=== PATIENT | female | born 2005 | race Hispanic/Latino ===

== ENCOUNTER → 2025-02-13 15:31 | Outpatient (CLI) | payer OTHER, SELFPAY ==
[2025-02-13 17:36] LABS: Add Manual Diff / Slide Review NO; Hematocrit 34.5 % (36-46); Hemoglobin 11.8 g/dL (12.0-16.0); Lymphocytes Absolute Auto 1800 /uL (1100-4500); Mean Corpuscular HGB Conc 34.3 % (30-36); Mean Corpuscular Hemoglobin 33.7 PG (26-34); Mean Corpuscular Volume 98.4 fL (80-100); Platelet Count 126 X10^3/uL (150-400)
[2025-02-13 17:48] LABS: Appearance Urine UA CLEAR; Bilirubin Urine UA NEGATIVE (NEGATIVE); Color Urine UA YELLOW; Glucose Urine UA NEGATIVE (Negative); Ketones Urine UA NEGATIVE (NEGATIVE); Leukocyte Esterase Urine UA NEGATIVE (NEGATIVE); Nitrite Urine UA NEGATIVE (Negative); Occult Blood Urine UA NEGATIVE (Negative); Protein Urine UA NEGATIVE (Negative); Specific Gravity Urine UA 1.010 (1.000-1.035); Urobilinogen Urine UA 0.2 E.U./dL (0.2)
[2025-02-13 17:53] LABS: pH Urine UA 7.0 (4.5-8.0)
[2025-02-14 15:35] LABS: Hepatitis B Surface Antigen NEGATIVE s/c (NEGATIVE)
[2025-02-14 15:51] LABS: HIV 1 & 2 Ab/Ag 4th Gen Combo NEGATIVE (NEGATIVE); Hep C Virus Ab w/Reflex Quant NEGATIVE s/c (NEGATIVE)
== END ==
PROVIDERS: PCP Nurse Practitioner Family; Referring Provider Family Medicine; Visit Provider Family Medicine
DX: Z34.00 Encounter for supervision of normal first pregnancy, unspecified trimester (principal)
CPT/HCPCS: 36415; 80055; 81003; 86787; 86803; 86850; 86900; 86901; 87086; 87389

== ENCOUNTER → 2025-03-07 12:45 | Outpatient (CLI) | payer OTHER, SELFPAY ==
--- NOTE | 2025-03-07 12:46 | DI.US.S_ITS ---
PROCEDURE: US OB >= 14 WEEKS FETUS INDICATIONS: antaomy OUTSIDE/PRIOR DATING DATA: Last menstrual period (LMP): October 20, 2024. LMP-based estimated date of delivery (VANNESSA): July 27, 2025. TECHNIQUE: Real-time scanning was performed of the fetus, with image documentation and biometric measurements. Endovaginal scanning: Not performed COMPARISON: None. FINDINGS: General: A single living intrauterine gestation is present. Presentation: Vertex. Placenta: Placental position is posterior , without previa. Amniotic fluid index: 11.0 cm, normal range is 5-24 cm. Single deepest vertical pocket is 5.2 cm. heart rate: 163 beats per minute. Maternal cervical canal: 1.7 in the cm long. Normal lower limit is 2.5 cm. biometrics: Biparietal diameter: 4.7 cm, 20 weeks and 0 days Head circumference: 17.2 cm, 19 weeks and 6 days Abdominal circumference: 14.5 cm, 19 weeks and 6 days Femur length: 3.1 cm, 19 weeks and 5 days Clinically estimated gestational age: 19 weeks and 5 days Composite gestational age from present scan: 19 weeks and 6 days Estimated weight and percentile: 313 g, 50th percentile Anatomic survey: Neuro: Ventricles are non-dilated at less than 10 mm. Cisterna magna is normal at 3-11 mm. Cerebellum is normal in size and morphology. Nuchal skin fold: Normal at less than 6 mm between 14-21 weeks gestational age. Face: Nose and lips, facial profile are normal. Spine: No evidence for spina bifida. Heart: 4-chambered heart is present, with normal ventricular outflow tracts. Diaphragm: Diaphragm is intact. Stomach: Left-sided stomach is present. Kidneys: No hydronephrosis. Normal is less than 5 mm in 2nd trimester, less than 7 mm in 3rd trimester. Cord: 3-vessel cord has orthotopic insertion. Bladder: Normal in size. Extremities: All 4 extremities identified. IMPRESSION: Single living intrauterine gestation with estimated sonographic gestational age of approximately 19 weeks and 6 days versus 19 weeks and 5 days by last menstrual period. Dating is concordant. Estimated weight is approximately 313 g which correlates with the 50th percentile. Normal routine second-trimester anatomy screening survey. Cervical length measured at 1.7 cm. Recommend follow-up imaging with possible transvaginal imaging if needed to confirm. We strive to produce accurate, complete, and clear reports of imaging services. To assist us in improving patient care, this report was composed using standard report templates and voice recognition software. Therefore, it may contain abnormal punctuation, insertions and/or omissions. Occasional wrong-word or sound-alike substitutions may occur. Though we review the report and make efforts to correct it, we do recommend that the report be read carefully in proper context to recognize any text inaccuracies. Dictated by: Cody Santos M.D. on 03/08/2025 at 8:32 Approved by: Cody Santos M.D. on 03/08/2025 at 8:42
== END ==
PROVIDERS: Referring Provider Family Medicine; Visit Provider Family Medicine
DX: Z34.02 Encounter for supervision of normal first pregnancy, second trimester (principal); Z3A.19 19 weeks gestation of pregnancy
CPT/HCPCS: 76811